=== PATIENT | male | born 2000 | race Caucasian/White ===

== ENCOUNTER 2024-09-09 08:57 | Emergency (ER) | payer OTHER ==
[~2024-09-09] VITALS: Ht 175.3 cm; Wt 87.7 kg
[2024-09-09 10:05] LABS: BASO % 0.2 % (0.0-1.0); EOS # 0.1 10^3/uL (0.0-0.5); EOS % 1.6 % (0.0-3.0); HEMATOCRIT 43.9 % (42.0-52.0); HEMOGLOBIN 15.5 g/dl (13.5-17.5); LYMPH # 0.4 10^3/uL (1.5-5.0); LYMPH % 5.3 % (24.0-44.0); MEAN CORPUSCULAR HGB CONC 35.3 g/dl (32.0-36.5); MEAN CORPUSCULAR VOLUME 85.1 fl (80.0-96.0); MONO # 0.6 10^3/uL (0.0-0.8); MONO % 7.4 % (2.0-8.0); NEUTROPHILS # 6.9 10^3/uL (1.5-8.5); NEUTROPHILS % 85.3 % (36.0-66.0); PLATELET COUNT, AUTOMATED 187 10^3/uL (150-450); RED BLOOD COUNT 5.16 10^6/uL (4.30-6.10); WHITE BLOOD COUNT 8.1 10^3/uL (4.0-10.0)
[2024-09-09] MEDS: MORPHINE 4 MG/ML 1ML VIAL IV ONE (10:11)
[2024-09-09] MEDS: ONDANSETRON 4MG 2ML VIAL IV ONE (10:12)
[2024-09-09] MEDS: NS (Normal Saline) 0.9% 1,000 ML IV ONE (10:12)
[2024-09-09 10:24] LABS: ALBUMIN 4.2 G/DL (3.2-5.2); BILIRUBIN,DIRECT 0.3 MG/DL (<0.4); TOTAL PROTEIN 7.9 G/DL (5.7-8.2)
[2024-09-09 10:39] LABS: KETONE, URINE AUTO RFX NEGATIVE (NEGATIVE); LEUKOCYTE ESTERASE UR AUTO RFX NEGATIVE (NEGATIVE); MUCUS, URINE RFX MODERATE (NEGATIVE); NITRITE, URINE AUTO RFX NEGATIVE (NEGATIVE); RBC, URINE AUTO RFX 1 /HPF (0-3); SQUAM EPITHELIAL CELL UR AURFX 0 /HPF (0-6); WBC, URINE AUTO RFX 1 /HPF (0-3)
[2024-09-09] MEDS ORDERED: ISOVUE-370 76% 100ML VIAL As Ordered ONE (11:14)
[2024-09-09] MEDS: methylPREDNISolone 125MG 2ML VIAL IV ONE (11:25)
[2024-09-09] MEDS: ACETAMINOPHEN 325 MG TAB PO ONE (11:25)
[2024-09-09] MEDS: diphenhydrAMINE 50MG/ML VIAL IV ONE (11:25)
[2024-09-09] MEDS ORDERED: KETO10TAB PO (15:30)
[2024-09-09] MEDS ORDERED: ONDA-282 PO (15:30)
[2024-09-09] MEDS ORDERED: CIPR-249 PO (15:30)
[2024-09-09] MEDS ORDERED: METR-265 PO (15:30)
[2024-09-09] MEDS: metroNIDAZOLE (FLAGYL) 500MG TABLET PO ONE (15:34)
[2024-09-09] MEDS: CIPROFLOXACIN 500MG TABLET PO ONE (15:34)
[2024-09-09 15:35] VITALS: BP 132/64; TEMP 97.9; O2SAT 98
== END 2024-09-09 15:48 | disposition home or self-care (01) ==
LOC: M ED 08:57
DX: A08.11 Acute gastroenteropathy due to Norwalk agent (principal); Z91.041 Radiographic dye allergy status; Z79.2 Long term (current) use of antibiotics; Z79.899 Other long term (current) drug therapy
CPT/HCPCS: 74177; 76705; 80047; 80076; 81001; 83605; 83690; 85025; 87040; 87507; 96361; 96374; 96375; 99284; J1200; J2405; J2919; Q9967

== ENCOUNTER → 2024-09-14 | Outpatient (CLI) | payer OTHER ==
[~2024-09-14] MED LIST: CIPR-249 PO; KETO10TAB PO; METR-265 PO; ONDA-282 PO; PROHANCE 279.3MG/ML 15ML VIAL As Ordered ONE
== END ==
LOC: M PLAIMG 07-30 06:56 → M RAD 08:11
PROVIDERS: ATTEND Colon & Rectal Surgery
DX: K60.50 Anorectal fistula, unspecified (principal)
CPT/HCPCS: 72197; A9576